=== PATIENT | male | born 1990 | race Two or more races ===

== ENCOUNTER 2021-01-10 12:36 | Emergency (ER) | payer MEDICAID, OTHER ==
[~2021-01-10] VITALS: Ht 165.1 cm; Wt 96.2 kg
[~2021-01-10 12:36] MED LIST: OMEP20TA5 PO
[2021-01-10] MEDS ORDERED: GUAI600T53 PO (13:29)
[2021-01-10] MEDS ORDERED: OXYM-51 NS (13:29)
[2021-01-10] MEDS ORDERED: IBUP-1955 PO (13:29)
--- NOTE | 2021-01-10 13:43 | NUR ---
Patient discharged to home in stable condition. Written and verbal after care instructions given. Patient verbalizes understanding of instructions. Stressed follow up or return to ER for worsening s/s.
== END 2021-01-10 13:44 | disposition home or self-care (01) ==
LOC: ER 12:36
DX: B34.9 Viral infection, unspecified (principal); R68.83 Chills (without fever); R05 Cough; R51.9 Headache, unspecified; Z20.822 Contact with and (suspected) exposure to COVID-19; J98.11 Atelectasis
CPT/HCPCS: 71045; 87426; 99284; U0003; A4663

== ENCOUNTER 2021-04-20 00:16 | Emergency (ER) | payer OTHER ==
[~2021-04-20] VITALS: Ht 165.1 cm; Wt 99.8 kg
[~2021-04-20 00:16] MED LIST changes: +GUAI600T53 PO; +IBUP-1955 PO; +OXYM-51 NS
--- NOTE | 2021-04-20 00:35 | NUR ---
MD Perea in room to do MSE.
[2021-04-20] MEDS ORDERED: OXYCODONE/APAP 5-325 MG TABLET PO ONE (01:00)
[2021-04-20] MEDS ORDERED: ONDANSETRON HCL 4 MG TABLET PO ONE (01:00)
[2021-04-20] MEDS ORDERED: PROC-11 PO (01:06)
[2021-04-20] MEDS ORDERED: OXYCODONE/APAP 5-325 MG TABLET ONE (01:07)
[2021-04-20] MEDS ORDERED: ONDANSETRON ODT 4 MG TAB.RAPDIS ONE (01:07)
[2021-04-20 01:20] LABS: HEMATOCRIT 42.8 % (36.7-47.1); MEAN CORPUSCULAR HEMOGLOBIN 29.1 uug (23.8-33.4); MEAN CORPUSCULAR VOLUME 87.5 fL (73.0-96.2); PLATELET COUNT (AUTO) 202 K/uL (152-348)
--- NOTE | 2021-04-20 01:26 | NUR ---
Patient resting on bed in room, using phone. No acute distress noted.
[2021-04-20 01:29] LABS: POTASSIUM 4.2 mmol/L (3.5-5.1)
[2021-04-20 01:40] VITALS: BP 122/72
--- NOTE | 2021-04-20 01:40 | NUR ---
Patient discharged to home in stable condition. Written and verbal after care instructions given. Patient verbalizes understanding of instructions. Stressed follow up or return to ER for worsening s/s. Patient instructed to not drive, stated his girlfriend is going to drive for him, V/S stable, ambulates with steady gait, Rx received, left with all belongings.
== END 2021-04-20 01:40 | disposition home or self-care (01) ==
LOC: ER 00:19
DX: R51.9 Headache, unspecified (principal); Z83.3 Family history of diabetes mellitus; E66.9 Obesity, unspecified; Z68.36 Body mass index [BMI] 36.0-36.9, adult; L83 Acanthosis nigricans; K21.9 Gastro-esophageal reflux disease without esophagitis; Z79.899 Other long term (current) drug therapy
CPT/HCPCS: 36415; 85025; A4663; Q0162

== ENCOUNTER 2021-04-22 00:22 | Emergency (ER) | payer OTHER ==
[~2021-04-22] VITALS: Ht 165.1 cm; Wt 99.8 kg
[~2021-04-22 00:22] MED LIST changes: +PROC-11 PO
[2021-04-22] MEDS ORDERED: HYDROMORPHONE 1 MG/1 ML DISP.SYRIN IV ONE (01:00)
[2021-04-22] MEDS ORDERED: IV NORMAL SALINE 1000 ML BAG IV ONE (01:00)
[2021-04-22] MEDS ORDERED: ONDANSETRON 4 MG/2 ML VIAL IV ONE (01:00)
--- NOTE | 2021-04-22 01:00 | NUR ---
Pt cc headache, abdominal pain w/ nausea, vomiting, diarrhea. Pt. states he believes he ate a bad sandwich that was left in his car yesterday. Pt. was at ER yesterday 04/20/21 for the same issue. Pt. denies any chest pain, cough, fever, sob.
[2021-04-22] MEDS ORDERED: ONDANSETRON 4 MG/2 ML VIAL ONE (01:01)
[2021-04-22] MEDS ORDERED: HYDROMORPHONE 1 MG/1 ML DISP.SYRIN ONE (01:01)
[2021-04-22 01:04] LABS: HEMATOCRIT 44.9 % (36.7-47.1); MEAN CORPUSCULAR HEMOGLOBIN 29.7 uug (23.8-33.4); MEAN CORPUSCULAR VOLUME 86.7 fL (73.0-96.2); PLATELET COUNT (AUTO) 200 K/uL (152-348)
[2021-04-22 01:36] LABS: POTASSIUM 3.8 mmol/L (3.5-5.1)
[2021-04-22 01:43] LABS: BILIRUBIN,DIRECT 0.1 mg/dL (0.0-0.2); BILIRUBIN,TOTAL 0.6 mg/dL (0.2-1.0); TOTAL PROTEIN, SERUM 7.9 g/dL (6.4-8.2)
[2021-04-22] MEDS ORDERED: DICY20TA11 PO (01:46)
--- NOTE | 2021-04-22 02:04 | NUR ---
Patient discharged to home in stable condition. Written and verbal after care instructions given. Patient verbalizes understanding of instructions. Stressed follow up or return to ER for worsening s/s. Patient out of ER with steady gait, no acute signs of distress, VSS, all belongings taken, IV site discontinued.
[2021-04-22 02:19] VITALS: BP 139/77
== END 2021-04-22 02:04 | disposition home or self-care (01) ==
LOC: ER 00:23
DX: A08.4 Viral intestinal infection, unspecified (principal)
CPT/HCPCS: 36415; 74176; 80048; 80076; 83690; 85025; 96361; 96374; 96375; 99284; J1170; J2405; A4663; J7030

== ENCOUNTER 2021-04-26 21:56 | Emergency (ER) | payer OTHER ==
[~2021-04-26] VITALS: Ht 165.1 cm; Wt 99.8 kg
[~2021-04-26 21:56] MED LIST changes: +DICY20TA11 PO
--- NOTE | 2021-04-26 22:10 | NUR ---
Pt ambulated to ER with c/o dizziness from food poisoning 1.5 weeks ago. A/O x4, no SOB or labored breathing. Denies any CP/pressure.
--- NOTE | 2021-04-26 22:15 | NUR ---
Dr. Perea art bedside, MSE in progress.
[2021-04-26] MEDS ORDERED: AMOX500T2 PO (23:07)
[2021-04-26] MEDS ORDERED: OXYC-128 PO (23:07)
[2021-04-26] MEDS ORDERED: AMOX-430 PO (23:07)
[2021-04-26] MEDS ORDERED: FLUT16SP16 NS (23:07)
--- NOTE | 2021-04-26 23:15 | NUR ---
Patient discharged to home in stable condition. A/O x3, no SOB or labored breathing. Afebrile. Denies any pain/discomfort at this time. Written and verbal after care instructions given. Patient verbalizes understanding of instructions. Stressed follow up or return to ER for worsening s/s. Steady gait.
[2021-04-26 23:16] VITALS: BP 140/71
== END 2021-04-26 23:17 | disposition home or self-care (01) ==
LOC: ER 21:57
DX: J32.9 Chronic sinusitis, unspecified (principal)
CPT/HCPCS: A4663

== ENCOUNTER 2021-05-01 19:32 | Emergency (ER) | payer OTHER ==
[~2021-05-01] VITALS: Ht 165.1 cm; Wt 99.8 kg
[~2021-05-01 19:32] MED LIST changes: +AMOX-430 PO; +AMOX500T2 PO; +FLUT16SP16 NS; +OXYC-128 PO
[2021-05-01] MEDS ORDERED: ONDANSETRON ODT 4 MG TAB.RAPDIS SL ONE (20:15)
[2021-05-01] MEDS ORDERED: MECLIZINE HCL 25 MG TABLET PO ONE (20:15)
[2021-05-01] MEDS ORDERED: HYDROCODONE/APAP 5-325MG TABLET PO ONE (20:15)
[2021-05-01] MEDS ORDERED: HYDROCODONE/APAP 5-325MG TABLET ONE (20:26)
[2021-05-01] MEDS ORDERED: MECLIZINE HCL 25 MG TABLET ONE (20:26)
[2021-05-01] MEDS ORDERED: ONDANSETRON ODT 4 MG TAB.RAPDIS ONE (20:26)
--- NOTE | 2021-05-01 20:30 | NUR ---
Patient presents for dizziness which he states has been present for "some time - maybe 2 weeks". He beleives this is secondary to a bad sandwich he ate that had been sitting out. No N/V/D present. MIld pain present. No other issues present.
[2021-05-01] MEDS ORDERED: HYDR-4209 PO (21:23)
[2021-05-01] MEDS ORDERED: MECL-159 PO (21:23)
--- NOTE | 2021-05-01 21:35 | NUR ---
Patient discharged to home in stable condition. Written and verbal after care instructions given. Patient verbalizes understanding of instructions. Stressed follow up or return to ER for worsening s/s. VSS. Steady gait. All belongings with patient. No neurological deficits.
[2021-05-01 21:36] VITALS: BP 121/85
== END 2021-05-01 21:34 | disposition home or self-care (01) ==
LOC: ER 19:34
DX: R51.9 Headache, unspecified (principal); R19.7 Diarrhea, unspecified; R11.2 Nausea with vomiting, unspecified; Z20.822 Contact with and (suspected) exposure to COVID-19; R42 Dizziness and giddiness
CPT/HCPCS: A4663; J8597; Q0162

== ENCOUNTER 2021-06-10 01:03 | Emergency (ER) | payer SELFPAY ==
[~2021-06-10 01:03] MED LIST changes: +HYDR-4209 PO; +MECL-159 PO
--- NOTE | 2021-06-10 03:03 | NUR ---
Pt not in waiting room.
== END 2021-06-10 03:03 | disposition left against medical advice (07) ==
LOC: ER 01:05
DX: Z53.21 Procedure and treatment not carried out due to patient leaving prior to being seen by health care provider (principal)

== ENCOUNTER 2021-06-22 02:25 | Inpatient (IN) | payer OTHER ==
[~2021-06-22] VITALS: Ht 165.1 cm; Wt 94.3 kg
--- NOTE | 2021-06-22 02:40 | NUR ---
Pt here for dizziness. Stated while he was driving at about 0120 he felt dizzy and he had difficulty driving with left arm tingling. pt says last several weeks he has been having vertigo. Was put on a medication by his pcp, but stopped taking it. Denies chest pain, changes in vision, no changes in speech.
--- NOTE | 2021-06-22 02:47 | NUR ---
Dr Florence into eval patient.
[2021-06-22] MEDS ORDERED: IV NORMAL SALINE 250 ML IV ONE (03:21)
[2021-06-22] MEDS ORDERED: SWABABLE VALVE TRANSFER SET EA MC ONE (03:21)
[2021-06-22] MEDS ORDERED: IOHEXOL 350 100 ML INFUS..BTL ONE (03:21)
[2021-06-22 03:25] LABS: CREATININE 1.1 mg/dL (0.6-1.3); PHOSPHOROUS 3.4 mg/dL (2.5-4.9); POTASSIUM 3.3 mmol/L (3.5-5.1)
[2021-06-22 03:27] LABS: HEMATOCRIT 40.8 % (36.7-47.1); MEAN CORPUSCULAR HEMOGLOBIN 29.2 uug (23.8-33.4); MEAN CORPUSCULAR VOLUME 87.7 fL (73.0-96.2); PLATELET COUNT (AUTO) 172 K/uL (152-348)
[2021-06-22 03:34] LABS: BILIRUBIN,DIRECT 0.1 mg/dL (0.0-0.2); BILIRUBIN,TOTAL 0.5 mg/dL (0.2-1.0); TOTAL PROTEIN, SERUM 7.7 g/dL (6.4-8.2)
[2021-06-22] MEDS ORDERED: POTASSIUM CHLORIDE 20 MEQ TAB.PRT.SR PO ONE (03:45)
--- NOTE | 2021-06-22 03:57 | NUR ---
Neurologist evaluating pt via tele-teurology
[2021-06-22] MEDS ORDERED: POTASSIUM CHLORIDE 20 MEQ TAB.PRT.SR ONE (03:58)
[2021-06-22] MEDS ORDERED: ASPIRIN 325 MG TABLET PO ONE (04:30)
--- NOTE | 2021-06-22 04:40 | NUR ---
Called [facility] for pt admit. Dr. Raygoza will call back.
[2021-06-22] MEDS ORDERED: ASPIRIN 325 MG TABLET ONE (05:04)
--- NOTE | 2021-06-22 05:04 | NUR ---
CALLED [facility] AGAIN TO FOLLOW UP ON PANEL CALL FOR DR. FRIED. DOCTOR PAGED AGAIN.
[2021-06-22 05:23] LABS: *AMPHETAMINE, URINE NEGATIVE (NEGATIVE); *CANNABINOID, URINE NEGATIVE (NEGATIVE); *COCCAINE, URINE NEGATIVE (NEGATIVE); *OPIATE, URINE NEGATIVE (NEGATIVE); *PHENCYCLIDINE SCREEN,URINE NEGATIVE (NEGATIVE)
--- NOTE | 2021-06-22 05:25 | NUR ---
Called [facility] again, Dr. Ambrose spoke w/ Dr. Perera Pt to be admitted to tele.
--- NOTE | 2021-06-22 05:48 | NUR ---
Pt to go to room 322.
--- NOTE | 2021-06-22 08:34 | NUR ---
REPORT WAS GIVEN TO METAL ROOFER. PT WAS TRANSFERED TO ROOM #322.
--- NOTE | 2021-06-22 08:55 | NUR ---
ADMITTED FROM HOME VIA ER A 30 YO MALE C/O DIZZINESS WHILE DRIVING AT 1:00 IN THE MORNING, on and off numbness and tingling sensation left leg. Patient alert and oriented x3 upon admission in the room, able to participate with admission assessment very well, no swallowing difficulty, able to ambulate from gurney to bed with steady gait. routine admission assessment initiated. will notify admitting hospitalist
[2021-06-22 09:00] VITALS: BP 147/69
[2021-06-22] MEDS ORDERED: ACETAMINOPHEN 325 MG TABLET PO PRN (09:30)
[2021-06-22] MEDS ORDERED: MAG HYDROX/AL HYDROX/SIMETH 30 ML LIQUID UDC PO PRN (09:30)
[2021-06-22] MEDS ORDERED: BLOOD SUGAR DIAGNOSTIC 1 EACH STRIP VI SCH ×2 (11:30→12:00)
[2021-06-22 11:42] VITALS: BP 106/60
--- NOTE | 2021-06-22 15:00 | NUR ---
seen by neurologist and hospitalist see notes.
[2021-06-22 15:56] VITALS: BP 106/59
--- NOTE | 2021-06-22 17:00 | NUR ---
per hospitalist patient ok for discharge and follow-up with pcp
--- NOTE | 2021-06-22 17:56 | NUR ---
discharged home stable accompanied by girlfriend
[2021-06-22] MEDS ORDERED: SIMVASTATIN 10 MG TABLET PO SCH (21:00)
[2021-06-23] MEDS ORDERED: PANTOPRAZOLE SODIUM 40 MG TABLET.DR PO SCH (07:00)
[2021-06-23] MEDS ORDERED: ASPIRIN EC 81 MG TABLET.DR PO SCH (09:00)
== END 2021-06-22 17:45 | disposition home or self-care (01) | DRG 111 ==
LOC: ER 02:29 → TELE3 08:27
PROVIDERS: ADMIT Registered Nurse; ATTEND Registered Nurse
DX: H81.20 Vestibular neuronitis, unspecified ear (principal); K76.0 Fatty (change of) liver, not elsewhere classified; E66.01 Morbid (severe) obesity due to excess calories; G43.909 Migraine, unspecified, not intractable, without status migrainosus; E78.5 Hyperlipidemia, unspecified; Z86.16 Personal history of COVID-19; Z87.01 Personal history of pneumonia (recurrent); Z68.34 Body mass index [BMI] 34.0-34.9, adult; M79.2 Neuralgia and neuritis, unspecified; E87.6 Hypokalemia; Z20.822 Contact with and (suspected) exposure to COVID-19
CPT/HCPCS: 36415; 70030-TC; 70450; 70496; 71045; 83735; 84100; 85025; 85730; 93005; 93307; 97161; A4663; G0378; J7050; Q9967